=== PATIENT | female | born 1980 | race African-American/Black ===

== ENCOUNTER 2017-10-11 05:44 | Inpatient (IN) ==
[2017-10-11] MEDS ORDERED: CITRIC ACID/SODIUM CITRATE 30 ML UDCUP PO ONE (05:56)
[2017-10-11] MEDS ORDERED: ceFAZolin 1,000 MG in SYRINGE 1 EACH IV ONE (05:56)
[2017-10-11] MEDS ORDERED: FAMOTIDINE 20 MG/2 ML VIAL IV ONE (05:56)
[2017-10-11] MEDS: LACTATED RINGERS 1,000 ML IV SCH ×4 (06:07→23:22)
[2017-10-11 06:27] LABS: Basophils % 0.1 % (0.0-0.8); Eosinophils % 0.4 % (0.00-10.9); Hematocrit 33.2 VOL% (35.7-47.0); Hemoglobin 10.1 GM/DL (12.0-16.0); Immature Granulocytes % 0.3 %; Immature Granulocytes Absolute 0.02 #; Lymphocytes # 2.1 10*3/uL (1.4-4.0); Lymphocytes % 26.3 % (21.3-54.2); Mean Corpuscular HGB Conc 30.4 GM/DL (32-36); Mean Corpuscular Hemoglobin 25 PG (27-34); Mean Corpuscular Volume 83.2 FL (87-102); Mean Platelet Volume 10.8 FL (9.6-12.0); Monocytes # 0.7 10*3/uL (0.11-0.8); Monocytes % 8.1 % (1.7-12.7); Neutrophils # 5.2 10*3/uL (1.4-7.4); Neutrophils % 64.8 % (38.7-73.9); Platelet Count 321 T/CUMM (130-400); Red Blood Count 3.99 MC/CUMM (3.8-5.5); Red Cell Distribution Width 17.2 % (9.3-17.3)
[2017-10-11 06:38] LABS: INR 0.9; PT Patient Result 9.7 SECS; Partial Thromboplastin Time 31.2 SECS (0-40)
[2017-10-11] MEDS ORDERED: OXYTOCIN/LR 0 UNIT/0 ML BAG IV ONE (06:53)
[2017-10-11 06:55] LABS: Albumin 2.6 G/DL (3.4-5.0); Bilirubin,Total 0.9 MG/DL (0.2-1.0); Calcium 9.2 MG/DL (8.5-10.1); Osmolality,Calculated 273.5 MOS/KG (273-304); Potassium 3.7 MMOL/L (3.5-5.1); Uric Acid 4.4 MG/DL (2.6-6.0)
[2017-10-11] MEDS ORDERED: OXYTOCIN/LR 20 UNIT/1,000 ML BAG IV ONE ×3 (07:26→08:52)
[2017-10-11] MEDS ORDERED: ACETAMINOPHEN 325 MG TABLET PO PRN (08:52)
[2017-10-11] MEDS ORDERED: RHO(D) IMMUNE GLOBULIN 300 MCG SYRINGE IM ONE (08:52)
[2017-10-11] MEDS ORDERED: ceFAZolin 1,000 MG in SYRINGE 1 EACH IV SCH (09:00)
[2017-10-11] MEDS ORDERED: MORPHINE 10 MG/10 ML VIAL ONE (09:13)
[2017-10-11] MEDS ORDERED: fentaNYL 100 MCG/2 ML VIAL ONE (09:14)
[2017-10-11] MEDS ORDERED: ePHEDrine 50 MG/ML AMP ONE (09:14)
[2017-10-11] MEDS ORDERED: ONDANSETRON 4 MG/2 ML VIAL ONE (09:14)
[2017-10-11 09:46] LABS: Apearance,Urine CLEAR (Clear); Bacteria,Urine Occasional /HPF (Few); Bilirubin,Urine Negative (Negative); Blood, Urine Small mg/dL (Negative); Glucose,Urine (UA) Negative (Negative); Ketones,Urine Negative (Negative); Mucus,Urine Occasional /LPF (Occasional); Nitrite,Urine Negative (Negative); Protein,Urine Negative; RBC,Urine 1 /HPF (0-4); Squamous Epithelial Cell,Urine Occasional /HPF (0-10); Urine Color Yellow (Yellow); Urine Specific Gravity 1.011 (1.001-1.035); Urine Urobilinogen < 2.0 EU/DL (0.2-1.0); WBC,Urine 1 /HPF (0-6)
[2017-10-11] MEDS: ONDANSETRON 4 MG/2 ML VIAL IV PRN ×2 (11:09→18:40)
[2017-10-11] MEDS ORDERED: hydrOXYzine HCL 25 MG/1 ML VIAL IM PRN (11:12)
[2017-10-11] MEDS ORDERED: diphenhydrAMINE 50 MG/1 ML VIAL IV PRN (11:12)
[2017-10-11] MEDS: HYDROmorphone 2 MG/1 ML VIAL IV PRN ×2 (11:27→18:44)
[2017-10-11] MEDS ORDERED: PROMETHAZINE 25 MG/1 ML VIAL IM PRN (12:49)
[2017-10-11] MEDS ORDERED: PROMETHAZINE 25 MG/1 ML VIAL ONE (12:51)
[2017-10-11] MEDS: DOCUSATE SODIUM 100 MG CAPSULE PO SCH (13:02)
[2017-10-11] MEDS: MULTIVITAMIN (PRENATAL) TABLET PO SCH (13:03)
[2017-10-11] MEDS: ceFAZolin 1,000 MG in SYRINGE 1 EACH IV SCH ×2 (15:27→23:50)
[2017-10-11 16:37] LABS: Basophils % 0.2 % (0.0-0.8); Hematocrit 30.4 VOL% (35.7-47.0); Hemoglobin 9.4 GM/DL (12.0-16.0); Immature Granulocytes % 0.4 %; Immature Granulocytes Absolute 0.05 #; Lymphocytes # 1.4 10*3/uL (1.4-4.0); Lymphocytes % 12.3 % (21.3-54.2); Mean Corpuscular HGB Conc 30.9 GM/DL (32-36); Mean Corpuscular Hemoglobin 26 PG (27-34); Mean Corpuscular Volume 83.1 FL (87-102); Mean Platelet Volume 10.9 FL (9.6-12.0); Monocytes # 0.7 10*3/uL (0.11-0.8); NRBC # 0.02 10*3/uL; Neutrophils % 81.1 % (38.7-73.9); Platelet Count 289 T/CUMM (130-400); Red Blood Count 3.66 MC/CUMM (3.8-5.5); Red Cell Distribution Width 17.1 % (9.3-17.3); White Blood Count 11.1 T/CUMM (4-12)
[2017-10-12] MEDS: oxyCODONE/ACETAMINOPHEN 5-325 MG TABLET PO PRN ×4 (02:44→19:37)
[2017-10-12] MEDS: DOCUSATE SODIUM 100 MG CAPSULE PO SCH ×3 (03:12→20:01)
[2017-10-12 05:03] LABS: Basophils % 0.1 % (0.0-0.8); Eosinophils % 0.4 % (0.00-10.9); Hematocrit 30.7 VOL% (35.7-47.0); Hemoglobin 9.3 GM/DL (12.0-16.0); Immature Granulocytes % 0.4 %; Immature Granulocytes Absolute 0.04 #; Lymphocytes # 1.4 10*3/uL (1.4-4.0); Lymphocytes % 14.2 % (21.3-54.2); Mean Corpuscular HGB Conc 30.3 GM/DL (32-36); Mean Corpuscular Hemoglobin 25 PG (27-34); Mean Corpuscular Volume 82.5 FL (87-102); Mean Platelet Volume 10.3 FL (9.6-12.0); Monocytes # 0.8 10*3/uL (0.11-0.8); Monocytes % 7.9 % (1.7-12.7); Neutrophils # 7.6 10*3/uL (1.4-7.4); Platelet Count 290 T/CUMM (130-400); Red Blood Count 3.72 MC/CUMM (3.8-5.5); Red Cell Distribution Width 17.2 % (9.3-17.3); White Blood Count 9.8 T/CUMM (4-12)
[2017-10-12] MEDS: MAGNESIUM HYDROXIDE SUSP 30 ML UDCUP PO PRN ×2 (08:08→19:36)
[2017-10-12] MEDS: MULTIVITAMIN (PRENATAL) TABLET PO SCH (08:08)
[2017-10-12] MEDS: IBUPROFEN 800 MG TABLET PO PRN ×2 (08:09→19:37)
[2017-10-12] MEDS: SIMETHICONE CHEW 80 MG TABLET PO PRN (19:37)
[2017-10-13] MEDS: IBUPROFEN 800 MG TABLET PO PRN ×2 (05:28→14:23)
[2017-10-13] MEDS: oxyCODONE/ACETAMINOPHEN 5-325 MG TABLET PO PRN ×2 (05:28→14:24)
[2017-10-13] MEDS: MULTIVITAMIN (PRENATAL) TABLET PO SCH (08:49)
[2017-10-13] MEDS: MAGNESIUM HYDROXIDE SUSP 30 ML UDCUP PO PRN (08:49)
[2017-10-13] MEDS: DOCUSATE SODIUM 100 MG CAPSULE PO SCH ×2 (08:49→20:30)
[2017-10-13] MEDS ORDERED: amLODIPine 5 MG TABLET PO SCH (16:30)
[2017-10-13] MEDS ORDERED: CHLORTHALIDONE 25 MG TABLET PO SCH (16:30)
[2017-10-13] MEDS: SIMETHICONE CHEW 80 MG TABLET PO PRN (20:34)
[2017-10-14] MEDS: oxyCODONE/ACETAMINOPHEN 5-325 MG TABLET PO PRN (04:14)
[2017-10-14] MEDS: IBUPROFEN 800 MG TABLET PO PRN (04:14)
[2017-10-14] MEDS ORDERED: INFLUENZA VIRUS VACCINE 0.5 ML SYRINGE IM ONE (08:15)
[2017-10-14] MEDS: MULTIVITAMIN (PRENATAL) TABLET PO SCH (08:30)
[2017-10-14] MEDS: DOCUSATE SODIUM 100 MG CAPSULE PO SCH (08:31)
[2017-10-14] MEDS ORDERED: hydroCHLOROthiazide 25 MG TABLET PO SCH (09:00)
[2017-10-14] MEDS ORDERED: LABETALOL 200 MG TABLET PO SCH (09:00)
[2017-10-14 09:39] VITALS: BP 141/83
== END 2017-10-14 11:30 | disposition home or self-care (01) | DRG 765 ==
LOC: N.LDOUT 05:44 → N.LD 05:47 → N.OB 11:25
PROVIDERS: ADMIT Obstetrics & Gynecology; ATTEND Obstetrics & Gynecology